=== PATIENT | female | born 1965 | race Hispanic/Latino ===

== ENCOUNTER 2019-09-01 08:15 | Outpatient (CLI) | payer OTHER ==
--- NOTE | 2019-09-01 13:47 | Magnetic Resonance Report ---
BILATERAL BREAST MR WITHOUT AND WITH GADOLINIUM INDICATION: Newly diagnosed right breast cancer. She had an ultrasound-guided needle biopsy of a rig ht breast mass on 08/12/2019. 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 COMPARISONS: 02/15/2019 and 08/12/2019 mammograms TECHNIQUE: Axial 1.0 mm T1 without, axial high-resolution 2.0 mm T2 and axial 1.0 mm dynamic vibrant high-resolution postcontrast T1 fat saturation sequences on a 1.5 Jes magnet. The examination was p erformed with an 8-channel dedicated [place] breast coil. Post-processing with CAD and subtraction was performed on an [email or web address] workstation. 13.0 cc of MultiHance was injected without incident for the c ontrast portion of the exam. Consent was obtained prior to the administration of the contrast. FINDINGS: RIGHT BREAST: Minimal background parenchymal enhancement. The known cancer is an oval slightly irregu lar mass far posterior at the pectoral muscle in the outer breast 13 cm from the nipple and 3 cm from the chest wall. It measures 2.8 x 2.2 x 1.5 cm. It demonstrates heterogeneous enhancement with 100% type I persistent waveform. No other mass or suspicious enhancement of the right breast. The mass abu ts the pectoral muscle but there is a thin layer of fat the mass from the pectoral muscle on the T2 sagittal sequence. No suspicious lymph nodes. LEFT BREAST: Minimal background parenchymal enhancement. No mass or suspicious enhancement. No suspic ious lymph nodes. IMPRESSION: A known 3 cm right breast cancer and no additional suspicious lesion of either breast. No suspicious lymph nodes. BI-RADS Category 6: Known cancer A normal MRI does not exclude the presence of some forms of breast malignancy as literature reports s uggest that some forms of ductal carcinoma in situ or lobular carcinoma, particularly, may not be det ected on MRI. The sensitivity and specificity of MRI for cancers under 5 mm may be reduced. MRI does not replace the recommendation for annual conventional mammographic evaluation and should be used as an adjunct to mammography and physical examination as necessary. Signer Name: Nic Castillo MD Signed: 09/01/2019 1:43 PM Workstation Name: [id number]
== END 2019-09-01 08:16 | disposition home or self-care (01) ==
LOC: SPVIMAG 08:15
PROVIDERS: ATTEND Surgery
DX: C50.411 Malignant neoplasm of upper-outer quadrant of right female breast (principal)
CPT/HCPCS: A9577; C8908; 77049

== ENCOUNTER 2020-01-20 11:28 | Outpatient (CLI) | payer OTHER ==
--- NOTE | 2020-01-20 15:06 | PET Report ---
PET/CT HISTORY: C50.411. Restaging of right breast cancer TECHNIQUE: The patient's fasting blood glucose was 122. The patient weighed 163 lbs. The patient w as injected with 13.7 mCi of FDG in the right antecubital fossa at 1203 hours and imaging was started at 1259 hours. The patient was imaged from the skull base to the thighs. All CT scans at this [facility] are performed using CT dose reduction for ALARA by means of automated exposure control. Images we re reviewed on a workstation. COMPARISON: 10/14/2019 FINDINGS: IMAGED BRAIN: Physiologic FDG uptake. NECK: Physiologic FDG uptake. CHEST WALL: Previously described right lateral breast mass has decreased from 2.8 x 2.3 cm to 1.7 x 0.7 cm. Max SUV has decreased from 14.8 to 2.6.. MEDIASTINUM: Physiologic FDG uptake. LUNGS: Physiologic FDG uptake. No suspicious pulmonary nodule has developed. Calcified granuloma in the left upper lobe is noted. HEPATOBILIARY: Physiologic FDG uptake. No suspicious liver lesion is identified. Max SUV of the righ t hepatic lobe measures 4.0. PANCREAS: Physiologic FDG uptake. SPLEEN: Physiologic FDG uptake. KIDNEYS/BLADDER: Physiologic FDG uptake. ADRENAL GLANDS: Physiologic FDG uptake. GI/MESENTERY: Physiologic FDG uptake. PELVIC VISCERA: Physiologic FDG uptake. LYMPH NODES: Right axillary lymphadenopathy has nearly resolved. There is one lymph node remaining w hich is decreased from 2.9 x 2.2 cm to 1.4 x 1.0 cm. Max SUV has decreased from 8.8 to 2.8. OSSEOUS STRUCTURES: Physiologic FDG uptake. No suspicious bony lesion is detected. ADDITIONAL FINDINGS: None. IMPRESSION: Significant positive response to therapy since 10/14/2019 exam. Right breast mass and right axillary adenopathy have significantly decreased in size and metabolic activity as outlined above. No new area s of disease are identified. Signer Name: Jorge Hamm Jr, MD Signed: 01/20/2020 3:02 PM Workstation Name: [id number]
== END 2020-01-20 11:29 | disposition home or self-care (01) ==
LOC: PET 11:28
PROVIDERS: ATTEND Surgery
DX: C50.411 Malignant neoplasm of upper-outer quadrant of right female breast (principal); N63.10 Unspecified lump in the right breast, unspecified quadrant
CPT/HCPCS: 78815; 82962; A9552

== ENCOUNTER 2020-03-15 07:57 | Outpatient (CLI) | payer OTHER ==
--- NOTE | 2020-03-15 09:03 | Ultrasound Report ---
RIGHT BREAST ULTRASOUND INDICATION: Enlarged right axillary lymph nodes, personal history of right breast cancer that is post surgery. COMPARISON: 01/20/2020, 10/14/2019. FINDINGS: Targeted ultrasound of the right axilla was performed. There are two abnormal lymph nodes w ith the largest of these measuring 2.1 x 1.6 x 1.3 cm with cortical thickness measuring up to 1.2 cm. One of these contains a central hyperechoic component which may represent the site of a biopsy arnie diez IMPRESSION: Two abnormal right axillary lymph nodes. An ultrasound-guided biopsy of the largest, most suspicious, is recommended. BI-RADS Category 4: Suspicious for Malignancy. Signer Name: Wilman Cuellar MD Signed: 03/15/2020 8:58 AM Workstation Name: [id number]
--- NOTE | 2020-03-15 14:37 | Ultrasound Report ---
ULTRASOUND-GUIDED CORE NEEDLE BIOPSY Right AXILLA WITH CLIP PLACEMENT INDICATION: Personal history of right breast cancer status post surgery and chemotherapy. FINDINGS: Informed consent was obtained. An enlarged lymph node (without a biopsy marker) within the right axil la was identified with ultrasound. The overlying skin was cleansed with chloro prep and local anesthe iván was obtained with a 1% lidocaine solution. Under ultrasound guidance an 18-gauge spring loaded co re biopsy needle was advanced to the lesion. A total of 4 core samples were obtained. A U-shaped biop sy biopsy marker was placed to marek the site of the biopsy. Specimen samples were placed in formalin and sent to pathology for analysis. Patient tolerated the procedure well and no immediate complications were identified. The biopsy marke r appears appropriately positioned under ultrasound. IMPRESSION: Technically successful ultrasound guided biopsy of enlarged right axillary lymph node with accurate p lacement of a biopsy marker. An addendum will be added to this report once pathology results are available. Signer Name: Wilman Cuellar MD Signed: 03/15/2020 2:32 PM Workstation Name: [id number]
== END 2020-03-15 07:58 | disposition home or self-care (01) ==
LOC: SPVWC 07:57
PROVIDERS: ATTEND Surgery
DX: R59.9 Enlarged lymph nodes, unspecified (principal); Z85.3 Personal history of malignant neoplasm of breast; Z79.899 Other long term (current) drug therapy
CPT/HCPCS: 38505; 76942; 88305; 88341; 88342

== ENCOUNTER 2020-03-27 06:23 | Day surgery (SDC) | payer OTHER ==
[~2020-03-27 06:23] MED LIST: ceFAZolin/Water 2 GM/20 ML 2 GM/20 ML SYRINGE IV NR
[2020-03-27] MEDS ORDERED: LACTATED RINGERS 1,000 ML IV SCH (09:00)
[2020-03-27] MEDS ORDERED: ONDANSETRON 4 MG/2 ML INJ IV PRN (09:06)
[2020-03-27] MEDS ORDERED: fentaNYL 100 MCG/2 ML INJ IV ONE (09:06)
[2020-03-27] MEDS ORDERED: HYDROmorphone 1 MG/1 ML INJ IV PRN ×2 (09:06)
--- NOTE | 2020-03-27 09:25 | Anesthesia Consultation ---
Anesthesia Consult and Med Hx - Airway Anesthetic Teeth Evaluation: Crowns ROM Head & Neck: Adequate Mental/Hyoid Distance: Adequate Mallampati Class: Class II Intubation Access Assessment: Good - Pre-Operative Health Status ASA Pre-Surgery Classification: ASA2 Proposed Anesthetic Plan: General - Pulmonary Hx Respiratory Symptoms: No (+2FS) - Cardiovascular System Hx Hypertension: Yes (Resolved with weight loss sx) - Central Nervous System Hx Psychiatric Problems: No - Gastrointestinal Hx Gastroesophageal Reflux Disease: No (S/P gastric sleeve) - Hematic Hx Anemia: Yes - Other Systems Hx Cancer: Yes - Additional Comments Anesthesia Medical History Comments: TTE 09/2019 showed normal EF and moderate TR ([facility] Was here approx seven weeks ago for mastectomy
--- NOTE | 2020-03-27 09:26 | Anesthesia Day of Surgery ---
Anesthesia Day of Surgery - Day of Surgery Patient Examined: Yes Patient H&P Reviewed: Yes Patient is NPO: Yes
--- NOTE | 2020-03-27 09:27 | Ultrasound Report ---
ULTRASOUND NEEDLE LOCALIZATION BREAST RIGHT HISTORY: Breast cancer, right axillary adenopathy COMPARISON: Ultrasound lymph node biopsy dated 03/15/2020. PET/CT dated 02/16/2020. FINDINGS: Informed consent was obtained. Sterile technique was utilized. 1% lidocaine was used for sk in anesthetization. Using ultrasound guidance, a 5 cm localization needle was advanced to the central portions of an enlarged right axillary lymph node containing a biopsy clip. The wire was not advance d through the lymph node due to the presence of a large vessel posterior to the lymph node. The patie nt tolerated the procedure without difficulty. These findings were discussed with Dr. Nunez at th e end of the procedure. IMPRESSION: Successful ultrasound-guided needle localization of right axillary adenopathy as describe d. Signer Name: Jorge Hamm Jr, MD Signed: 03/27/2020 9:22 AM Workstation Name: [id number]
[2020-03-27] MEDS ORDERED: MIDAZOLAM 2 MG/2 ML INJ IV NR (10:00)
[2020-03-27] MEDS ORDERED: HYDROmorphone 1 MG/1 ML INJ ONE (11:02)
[2020-03-27] MEDS ORDERED: propofoL 200 MG/20 ML VIAL IV ONE (11:02)
[2020-03-27] MEDS ORDERED: LIDOCAINE MPF (2%) 20 MG/1 ML VIAL 5 ML ONE (11:03)
[2020-03-27] MEDS ORDERED: BUPIVACAINE/PF (0.25%) 2.5 MG/ML 30 ML VIAL INFILTRATI ONE ×2 (12:05→12:17)
[2020-03-27] MEDS ORDERED: LIDOCAINE (1%) 10 MG/1 ML VIAL 20 ML MDV INFILTRATI ONE (12:17)
[2020-03-27] MEDS ORDERED: WATER FOR IRRIG STERILE 1,500 ML BOTTLE IR ONE (12:17)
[2020-03-27] MEDS ORDERED: ONDANSETRON 4 MG/2 ML INJ ONE (13:12)
[2020-03-27] MEDS ORDERED: dexAMETHasone 20 MG/5 ML VIAL ONE (13:12)
[2020-03-27] MEDS ORDERED: SODIUM CHLORIDE 0.9% 1000 ML 1,000 ML ONE (13:13)
--- NOTE | 2020-03-27 13:52 | Short Stay Summary ---
Short Stay Documentation Date of service: 03/27/20 - History H&P: obtained from office - Allergies and Medications Current Medications: Allergies No Known Allergies Allergy (Verified 03/22/20 12:17) Home Medications Medication Instructions Recorded Confirmed Last Taken Type Multivit-Min/Iron/Folic Acid/K 1 each PO DAILY 01/25/20 03/27/20 03/26/20 08:00 History [One Daily Women's Multivitamin] Active Medications Hydromorphone HCl (Dilaudid) 0.25 mg IV Q10MIN PRN PRN Reason: Pain, Moderate (4-6) Hydromorphone HCl (Dilaudid) 0.5 mg IV Q10MIN PRN PRN Reason: Pain , Severe (7-10) Cefazolin Sodium (Ancef/Sterile Water 2 Gm/20 Ml) 2 gm in 20 mls @ 80 mls/hr IV PREOP NR; Protocol Stop: 03/27/20 20:00 Lactated Ringer's (Lactated Ringers) 1,000 mls @ 100 mls/hr IV DIRECT JUAN Last Admin: 03/27/20 09:35 Dose: 100 mls/hr Documented by: Midazolam HCl (Versed) 2 mg IV PREOP NR Stop: 03/27/20 23:59 Last Admin: 03/27/20 09:45 Dose: 2 mg Documented by: Ondansetron HCl (Zofran) 4 mg IV ONCE PRN PRN Reason: Nausea And Vomiting - Brief post op/procedure progress note Date of procedure: 03/27/20 Pre-op diagnosis: 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
--- NOTE | 2020-03-27 13:56 | Post Anesthesia Evaluation ---
- Post Anesthesia Evaluation Patient Participated: Yes Airway Patent: Yes Stable Respiratory Function: Yes Nausea/Vomiting: No Temp > 96.8F: Yes Pain Manageable: Yes Adequeate Hydration: Yes Anesthesia Complications: No Block Receding Appropriately: Not Applicable Patient on Ventilator: No
[2020-03-27 15:10] VITALS: BP 139/73
--- NOTE | 2020-03-27 15:49 | Operative Report ---
Operative Report Operative Report: Operative Report: March 27, 2020 Preoperative diagnosis: Right breast cancer of the upper outer quadrant with axillary selina metastasis Postoperative diagnosis: Same Procedure: Right axillary lymph node dissection Surgeon: Lacy Nunez MD Machine Rigger: Karri Zavala MD Anesthesia: General Findings: Bulky right axillary lymphadenopahty; wire present at axillary lymph node of most recent biopsied axillary lymph node Complications: None EBL: Less than 50 cc Drains: 15 Polish axillary drain Disposition: PACU in good condition Indications for operative procedure: This is a 54 year old lady with newly diagnosed right breast cancer of the upper outer quadrant, Stage II [id number] triple negative. She recently completed neoadjuvant chemotherapy. On January 23, 20162019 patient underwent bilateral total mastectomy and right sentinel lymph node biopsy followed by bilateral tissue utility porter placement by plastic surgery. 5 sentinel lymph nodes were removed and negative for malignancy. Final pathology with findings of no biopsy site changes from prior SLNS (intraoperative report of marcophages present and probable for biopsy site changes) and patient with prior positive right axillary lymph node. Recent follow-up right axilla ultrasound with findings of suspicious right axillary lymph nodes with biopsy performed and findings positive for malignancy. PET scan prior to surgery with no suspicious right axillary lymphadenopathy and most recent PET scan obtained March 23, 2020 with findings of enlarged right axillary lymphadenopathy-new finding since last PET scan. Recommendations were to proceed with a right axillary lymph node dissection. Patient understands adjuvant radiation therapy will be followed. She wished to proceed with the above procedure. Procedure in detail: Patient was then taken to the operating room. Gen. anesthesia was administered. Right breast and axilla were prepped and draped in the normal sterile operative fashion. Wire was present in axilla at location of recent biopsied axillary lymph node. Attention was then taken towards the right axilla. Ultrasound used as well for marking of incision, 2 abnormal right axillary lymph nodes present as well as wire seen. An axillary incision was made with a 15 blade knife and dissection taken down to subcutaneous tissues. First began opening of the axillary fascia. The lattismus dorsi muscle was identified and followed superiorly. Then proceeded with identification of the axillary vein followed by identification of the thoracodorsal bundle and long thoracic nerve. Axillary lymph nodes were then removed from the above boundaries with the aid of the bovie cautery in a sweeping-like motion and then sent to pathology. Axillary lymph nodes from level I and II were removed. Wire as present as well and removed during the dissection along with the axillary lymph nodes. Bulky right axillary lymph nodes were present. Both nerves were identified and unharmed. The axilla was examined and no palpable lymph nodes were present or seen. Axillary cavity was appropriately irrigated and suctioned. Hemostasis was noted. A 15 setswana ELIZABETH axillary drain was placed. Axillary fascia was approximated and closed using interrupted 3-0 Vicryl and the skin brought together and closed using a running 4-0 Monocryl followed by skin affix. The patient tolerated surgery very well and she was awaken from anesthesia without any complication and transported to PACU in good condition.
== END 2020-03-27 06:24 | disposition home or self-care (01) ==
LOC: OR 06:23
PROVIDERS: ATTEND Surgery
DX: C77.3 Secondary and unspecified malignant neoplasm of axilla and upper limb lymph nodes (principal); C50.411 Malignant neoplasm of upper-outer quadrant of right female breast; Z20.828 Contact with and (suspected) exposure to other viral communicable diseases; R59.9 Enlarged lymph nodes, unspecified; I10 Essential (primary) hypertension; M19.90 Unspecified osteoarthritis, unspecified site; Z98.890 Other specified postprocedural states; Z80.3 Family history of malignant neoplasm of breast; Z79.899 Other long term (current) drug therapy; Z90.49 Acquired absence of other specified parts of digestive tract; Z90.13 Acquired absence of bilateral breasts and nipples; Z87.442 Personal history of urinary calculi; Z86.2 Personal history of diseases of the blood and blood-forming organs and certain disorders involving the immune mechanism
CPT/HCPCS: 19285; 38745; 88307; J0690; J1100; J1170; J2250; J2405; J2704; J7030; J7120; U0003; 78800; A9541